=== PATIENT | male | born 1975 | race Two or more races ===

== ENCOUNTER 2023-04-24 09:09 | Emergency (ER) | payer MEDICAID, OTHER ==
[~2023-04-24] VITALS: Ht 172.7 cm; Wt 145.0 kg
[2023-04-24 09:19] VITALS: BP 136/96; PULSE 89; RESP 18; TEMP 98.6; O2SAT 96
[2023-04-24] MEDS ORDERED: NEOM0.1O7 OP (11:05)
== END 2023-04-24 11:06 | disposition home or self-care (01) ==
LOC: ER 09:09
DX: H01.005 Unspecified blepharitis left lower eyelid (principal)

== ENCOUNTER 2023-11-26 17:50 | Inpatient (IN) | payer MEDICAID ==
[~2023-11-26] VITALS: Ht 172.7 cm; Wt 148.4 kg
[~2023-11-26 17:50] MED LIST: NEOM0.1O7 OP
[2023-11-26 18:42] LABS: Basophils # (auto) 0.1 10 ^3/uL (0-0.2); Basophils % (auto) 1.1 % (0.0-2.0); Eosinophils # (auto) 0.1 10 ^3/uL (0-0.8); Eosinophils % (auto) 0.6 % (0.0-7.0); Hematocrit 43.3 % (41.0-53.0); Hemoglobin 14.6 g/dL (13.5-17.5); Lymphocytes # (auto) 3.7 10 ^3/uL (0.4-5.4); Lymphocytes % (auto) 37.3 % (10.0-50.0); Mean Corpuscular Hemoglobin 29.5 pg (28.0-32.0); Mean Corpuscular Hgb Conc. 33.6 g/dL (32.0-36.0); Mean Corpuscular Volume 87.9 fL (80.0-100.0); Monocytes # (auto) 0.5 10 ^3/uL (0-1.3); Monocytes % (auto) 5.2 % (0.0-12.0); Neutrophils # (auto) 5.5 10 ^3/uL (1.6-8.6); Neutrophils % (auto) 55.8 % (37.0-80.0); Platelet Count (auto) 267 10^3/uL (140-450); Red Blood Cells 4.93 10^6/uL (4.5-5.90); Red Cell Distribution Width 14.9 % (11.8-14.3); White Blood Cell 9.9 10^3/uL (4.4-10.8)
[2023-11-26 18:54] LABS: Alanine Aminotransferase 21 U/L (7-40); Albumin 4.1 g/dL (3.2-4.8); Alkaline Phosphatase 62 U/L (46-116); Anion Gap 6 (5-15); Aspartate Aminotransferase 18 U/L (13-40); BUN/Creatinine Ratio 11.2 (10.0-20.0); Bilirubin, Total 0.8 mg/dL (0.2-1.0); Blood Urea Nitrogen 15 mg/dL (9-23); Calcium 9.3 mg/dL (8.7-10.4); Carbon Dioxide 29 mmol/L (20-31); Chloride 109 mmol/L (98-107); Glucose 131 mg/dL (74-106); Magnesium 1.9 mg/dL (1.6-2.6); Potassium 3.6 mmol/L (3.5-5.1); Sodium 144 mmol/L (136-145)
[2023-11-26 18:55] LABS: Total Protein 7.2 g/dL (5.7-8.2)
[2023-11-26 19:01] LABS: INR 1.02 (0.9-1.15); Partial Thromboplastin Time 27.1 SEC (24.5-34.5); Prothrombin Time 10.8 sec (9.3-11.8)
[2023-11-26] MEDS: ASPirin 81 mg TAB PO ONE (20:20)
[2023-11-26] MEDS: MORPHINE SULFATE 4 MG/ML SYR/VIAL IV ONE (20:37)
[2023-11-26] MEDS: ONDANSETRON HCL 4 MG/2 ML VIAL IV ONE (20:38)
[2023-11-26] MEDS ORDERED: ACETAMINOPHEN 500 MG TAB PO PRN (22:15)
[2023-11-26] MEDS ORDERED: ONDANSETRON HCL 4 MG/2 ML VIAL IV PRN (22:15)
[2023-11-26] MEDS ORDERED: MORPHINE SULFATE INJ 2 MG/ml SYRG IV PRN (22:15)
[2023-11-26] MEDS ORDERED: traMADol HCL 50 MG TAB PO PRN (22:15)
[2023-11-26] MEDS: POTASSIUM EFFERVESENT TAB 25 MEQ PO ONE (22:33)
[2023-11-26] MEDS: ATORVASTATIN 20 MG TAB PO ONE (22:33)
[2023-11-26] MEDS: ASPirin-EC 81 mg tab PO ONE (22:34)
[2023-11-26] MEDS: LISINOPRIL 5 MG TAB PO ONE (22:41)
[2023-11-26 22:58] LABS: Urine Bacteria None Seen /hpf (None Seen)
[2023-11-26 23:00] LABS: INR 1.02 (0.9-1.15); Partial Thromboplastin Time 27.6 SEC (24.5-34.5); Prothrombin Time 10.8 sec (9.3-11.8)
[2023-11-26 23:21] LABS: Protein, Urine 19.7 mg/dL (1-14)
[2023-11-26 23:23] LABS: Urine Blood Negative /uL (Negative); Urine Clarity Clear (Clear); Urine Color Yellow (Yellow); Urine Mucus FEW (None Seen); Urine Protein, UAD TRACE (Negative); Urine Specific Gravity 1.036 (1.001-1.035); Urine Urobilinogen 2 mg/dL (Negative); Urine WBC 1 /hpf (0 - 3); Urine pH 5.5 (5.0-9.0)
[2023-11-26 23:24] LABS: Amphetamine Screen, Urine Neg (NEGATIVE); Barbiturate Scree,Urine Neg (NEGATIVE); Benzodiazephine Screen, Urine Neg (NEGATIVE); Cannabinoid Screen, Urine Neg (NEGATIVE); Cocaine Screen, Urine Neg (NEGATIVE); Opiate Scree,Urine Pos (NEGATIVE); Phencyclidine Screen, Urine Neg (NEGATIVE)
[2023-11-27] MEDS: ERGOCALCIFEROL 50,000 UNIT(1.25MG) CAP PO SCH (00:09)
[2023-11-27 03:33] LABS: Basophils # (auto) 0.1 10 ^3/uL (0-0.2); Eosinophils # (auto) 0.1 10 ^3/uL (0-0.8); Hematocrit 40.3 % (41.0-53.0); Hemoglobin 13.6 g/dL (13.5-17.5); Lymphocytes # (auto) 3.7 10 ^3/uL (0.4-5.4); Lymphocytes % (auto) 43.8 % (10.0-50.0); Mean Corpuscular Hgb Conc. 33.7 g/dL (32.0-36.0); Monocytes # (auto) 0.7 10 ^3/uL (0-1.3); Neutrophils # (auto) 3.9 10 ^3/uL (1.6-8.6); Neutrophils % (auto) 46.2 % (37.0-80.0); Platelet Count (auto) 244 10^3/uL (140-450); Red Blood Cells 4.52 10^6/uL (4.5-5.90); Red Cell Distribution Width 14.9 % (11.8-14.3); White Blood Cell 8.4 10^3/uL (4.4-10.8)
[2023-11-27 03:53] LABS: Chloride 106 mmol/L (98-107); Potassium 4.2 mmol/L (3.5-5.1); Sodium 141 mmol/L (136-145)
[2023-11-27 03:54] LABS: Anion Gap 6 (5-15); Carbon Dioxide 29 mmol/L (20-31)
[2023-11-27 03:59] LABS: BUN/Creatinine Ratio 12.5 (10.0-20.0); Blood Urea Nitrogen 14 mg/dL (9-23); Glucose 98 mg/dL (74-106)
[2023-11-27 04:23] LABS: Triglycerides 81 mg/dL (< 150)
[2023-11-27 04:24] LABS: LDL Cholesterol 90 mg/dL (< 100)
[2023-11-27 04:25] LABS: Cholesterol 131 mg/dL (< 200); HDL Cholesterol 33 mg/dL (40-59)
[2023-11-27 09:47] VITALS: PULSE 68; RESP 18; O2SAT 96
[2023-11-27] MEDS: amLODIPine BESYLATE 5 MG TAB PO SCH (10:00)
[2023-11-27] MEDS: LISINOPRIL 5 MG TAB PO SCH (10:00)
[2023-11-27] MEDS ORDERED: AML5T PO (11:15)
[2023-11-27] MEDS ORDERED: ATOR20TA50 PO (11:15)
[2023-11-27] MEDS ORDERED: LISI-275 PO (11:15)
[2023-11-27] MEDS: FUROSEMIDE 20 MG/2 ML VIAL IV SCH (12:08)
[2023-11-27 13:30] VITALS: BP 110/48; PULSE 84; RESP 18; TEMP 98.3; O2SAT 95
[2023-11-27 17:00] VITALS: BP 111/49; PULSE 85; RESP 18; TEMP 98.2; O2SAT 96
[2023-11-27 21:00] VITALS: BP 118/69; PULSE 75; RESP 18; TEMP 98.2; O2SAT 92
[2023-11-27] MEDS ORDERED: ATORVASTATIN 20 MG TAB PO SCH (22:00)
== END 2023-11-27 20:53 | disposition left against medical advice (07) | DRG 203 ==
LOC: ER 17:50 → TELE 22:09 → TELE-WESTW 11-27 09:45
PROVIDERS: ADMIT Internal Medicine; ATTEND Internal Medicine
DX: M94.0 Chondrocostal junction syndrome [Tietze] (principal); N17.0 Acute kidney failure with tubular necrosis; I50.42 Chronic combined systolic (congestive) and diastolic (congestive) heart failure; I11.0 Hypertensive heart disease with heart failure; R07.89 Other chest pain; E55.9 Vitamin D deficiency, unspecified; E66.01 Morbid (severe) obesity due to excess calories; G89.29 Other chronic pain; F41.9 Anxiety disorder, unspecified; R73.03 Prediabetes; Z53.29 Procedure and treatment not carried out because of patient's decision for other reasons; Z82.49 Family history of ischemic heart disease and other diseases of the circulatory system; Z83.3 Family history of diabetes mellitus; Z80.0 Family history of malignant neoplasm of digestive organs; Z80.8 Family history of malignant neoplasm of other organs or systems; Z80.42 Family history of malignant neoplasm of prostate; Z87.891 Personal history of nicotine dependence; Z68.42 Body mass index [BMI] 45.0-49.9, adult
CPT/HCPCS: 36415; 71045; 80048; 80053; 80061; 80307; 81001; 82306; 82570; 82607; 83036; 83735; 83880; 84156; 84300; 84443; 84484; 85025; 85379; 85610; 85730; 93005; 93306; 99291; G0378; J2405